=== PATIENT | female | born 1965 | race Caucasian/White ===

== ENCOUNTER → 2016-07-07 | Outpatient (CLI) | payer OTHER ==
[2016-07-07 13:01] LABS: ABSOLUTE EOSINOPHILS # (AUTO) 0.2 10^3/uL (0.0-0.6); ABSOLUTE LYMPHOCYTES (AUTO) 1.7 10^3/uL (0.5-4.7); ABSOLUTE MONOCYTES (AUTO) 0.5 10^3/uL (0.1-1.4); ABSOLUTE NEUT (AUTO) 4.8 10^3/uL (1.7-8.2); BASOPHILS % (AUTO) 0.4 % (0-2); EOSINOPHILS % (AUTO) 2.5 % (0-6); HEMATOCRIT 35.3 % (36.0-47.0); HEMOGLOBIN 11.6 g/dL (12.0-15.5); HGB HCT DIFFERENCE -0.5; LYMPHOCYTES % (AUTO) 23.2 % (13-45); MEAN CORPUSCULAR HEMOGLOBIN 24.4 pg (27.0-33.4); MEAN CORPUSCULAR HGB CONC 32.9 g/dL (32.0-36.0); MEAN CORPUSCULAR VOLUME 74 fl (80-97); MONOCYTES % (AUTO) 6.7 % (3-13); RED BLOOD COUNT 4.76 10^6/uL (3.72-5.28); RED CELL DISTRIBUTION WIDTH 16.8 % (11.5-14.0); SEGMENTED NEUTROPHILS % (AUTO) 67.2 % (42-78); WHITE BLOOD COUNT 7.2 10^3/uL (4.0-10.5)
[2016-07-07 13:21] LABS: CHOLESTEROL 131.84 mg/dL (0-200); Direct HDL 39 mg/dL (>40); TRIGLYCERIDES 189 mg/dL (<150)
[2016-07-07 13:31] LABS: DIRECT LDL 57 mg/dL (<100)
[2016-07-07 13:38] LABS: VLDL CHOLESTEROL 37.8 mg/dL (10-31)
== END ==
LOC: CCC 12:04
DX: E11.8 Type 2 diabetes mellitus with unspecified complications (principal)
CPT/HCPCS: 36415; 80061; 83036; 84443; 85025

== ENCOUNTER → 2016-10-20 | Outpatient (CLI) | payer OTHER ==
--- NOTE | 2016-10-20 13:26 | EKG REPORT ---
SEVERITY:- NORMAL ECG - SINUS RHYTHM : Confirmed by: Clau Deleon MD 20-Oct-2016 13:25:35
[2016-10-20 13:52] LABS: FERRITIN 4.94 ng/mL (11.1-264.0)
== END ==
LOC: CCC 11:39
DX: E78.4 Other hyperlipidemia (principal); E11.8 Type 2 diabetes mellitus with unspecified complications; D50.9 Iron deficiency anemia, unspecified; Z79.899 Other long term (current) drug therapy
CPT/HCPCS: 36415; 82728; 83540; 83550; 93005; 93010

== ENCOUNTER → 2017-06-04 | Outpatient (CLI) | payer OTHER | LOC: WI 13:41 | PROVIDERS: ATTEND Physician Assistant | DX: Z12.31 Encounter for screening mammogram for malignant neoplasm of breast (principal) | CPT/HCPCS: 77067; G0202 ==

== ENCOUNTER 2017-06-25 09:31 | Outpatient (CLI) | payer OTHER ==
[~2017-06-25 09:31] MED LIST: ACETAMINOPHEN 325 MG TABLET PO PRN; DIPHENHYDRAMINE HCL 25 MG CAPSULE PO PRN; IRON DEXTRAN COMPLEX 25 MG in SYRINGE, DISPOSABLE, 1 EACH IV PRN; IRON DEXTRAN COMPLEX 975 MG in NORMAL SALINE 1000 ML 1,000 ML IV PRN; NORMAL SALINE 250 ML IV PRN
[2017-06-25 10:06] VITALS: BP 126/62
== END 2017-06-25 12:41 | disposition home or self-care (01) ==
LOC: II 09:31 → 5TH 09:31 → II 12:41
PROVIDERS: ATTEND Internal Medicine Hematology & Oncology
PROC: 3E033GC Introduction of Other Therapeutic Substance into Peripheral Vein, Percutaneous Approach (ICD-10-PCS; principal; 2017-06-25)
DX: D50.0 Iron deficiency anemia secondary to blood loss (chronic) (principal)
CPT/HCPCS: 96365; 96366; 96375; J1750; J7030; J3490; 96367

== ENCOUNTER → 2017-08-11 | Outpatient (CLI) | payer OTHER ==
--- NOTE | 2017-08-11 17:00 | WOMENS IMAGING REPORT ---
EXAM DESCRIPTION: BILAT DIAGNOSTIC MAMMO W/CAD; U/S BREAST UNILATERAL, COMPL COMPLETED DATE/TIME: 08/11/2017 10:43 am; 08/11/2017 1:32 pm REASON FOR STUDY: NODULAR DENSITY; BILATERAL BREAST NODULES N63.21 N63.21 UNSPECIFIED LUMP IN THE L EFT BREAST, UPPER OUTER QUAD N63.11 UNSPECIFIED LUMP IN THE RIGHT BREAST, UPPER OUTER [place] COMPARISON: BILATERAL SCREENING MAMMOGRAM 06/04/2017 TECHNIQUE: Cone compression craniocaudal and mediolateral oblique views of each breast recorded usin g digital acquisition. Bilateral 90 mediolateral views were also obtained. Bilateral breast ultrasound was performed. LIMITATIONS: None. FINDINGS: RIGHT BREAST MASSES: No suspicious masses. CALCIFICATIONS: No new or suspicious calcifications. ARCHITECTURAL DISTORTION: None. DEVELOPING DENSITY: None. ASYMMETRY: None noted. OTHER: No other significant findings. LEFT BREAST MASSES: No suspicious masses. CALCIFICATIONS: No new or suspicious calcifications. ARCHITECTURAL DISTORTION: None. DEVELOPING DENSITY: None. ASYMMETRY: None noted. OTHER: No other significant finding. Read with the assistance of CAD: .[facility] - R2 Cenova Version 1.3 .[facility] - R2 Cenova Version 1.3 .[facility] - R2 Cenova Version 2.4 .[facility] [place] R2 Cenova Version 2.4 .[facility] - R2 Music Education Adjunct Professor Version 9.2 Bilateral breast ultrasound: On the right side, whole breast ultrasound was performed. At the 6 o'clock position, 6 mm cyst is pr esent. At the 9 o'clock periareolar region, a 7 mm cyst is present. At the 10 to 11 o'clock positio n, a 7 mm cyst is present. At the 10 o'clock retroareolar region, a small 8 mm fibroadenoma is prese nt. On the left side, whole breast ultrasound was performed. At the 12 o'clock position, a 9 mm cyst is present. At the 3 o'clock position, a 2.8 x 2.3 cm fibroadenoma is present. At the 9 o'clock positi on, an 11 mm septated cyst is present. IMPRESSION: No mammographic or sonographic evidence for malignancy bilaterally. BREAST DENSITY: c. The breasts are heterogeneously dense, which may obscure small masses. BIRAD: 2 Benign findings. RECOMMENDATION: RECOMMENDED FOLLOW UP: Please continue yearly bilateral screening mammography/tomosy nthesis in June 2018. SPECIFIC INTERVENTION/IMAGING/CONSULTATION RECOMMENDED:No additional intervention/ imaging/consultati on needed at this time. COMMUNICATION:Patient notified by letter COMMENT: The patient has been notified of the results by letter per SA requirements. Additional no tification policies are in place for contacting patient with suspicious or incomplete findings. Quality ID #[id number]: The [employer] recommends an annual screening mammogram for women aged 40 years or over. This facility utilizes a reminder system to ensure that all patients receive reminder letters, and/or direct phone calls for appointments. This includes reminders for routine scr eening mammograms, diagnostic mammograms, or other Breast Imaging Interventions when appropriate. Th is patient will be placed in the appropriate reminder system. The [employer] (ACR) has developed recommendations for screening MRI of the breast s in certain patient populations, to be used in conjunction with mammography. Breast MRI surveillanc e may be appropriate for women with more than 20% lifetime risk of developing breast cancer as deter mined by genetic testing, significant family history of the disease, or history of mantle radiation f or Hodgkins Disease. ACR Practice Guidelines 2008. TECHNICAL DOCUMENTATION: FINDING NUMBER: (1) ASSESSMENT: (1) JOB ID: [id number] [employer]- All Rights Reserved
--- NOTE | 2017-08-11 17:00 | WOMENS IMAGING REPORT ---
EXAM DESCRIPTION: BILAT DIAGNOSTIC MAMMO W/CAD; U/S BREAST UNILATERAL, COMPL COMPLETED DATE/TIME: 08/11/2017 10:43 am; 08/11/2017 1:32 pm REASON FOR STUDY: NODULAR DENSITY; BILATERAL BREAST NODULES N63.21 N63.21 UNSPECIFIED LUMP IN THE L EFT BREAST, UPPER OUTER QUAD N63.11 UNSPECIFIED LUMP IN THE RIGHT BREAST, UPPER OUTER [place] COMPARISON: BILATERAL SCREENING MAMMOGRAM 06/04/2017 TECHNIQUE: Cone compression craniocaudal and mediolateral oblique views of each breast recorded usin g digital acquisition. Bilateral 90 mediolateral views were also obtained. Bilateral breast ultrasound was performed. LIMITATIONS: None. FINDINGS: RIGHT BREAST MASSES: No suspicious masses. CALCIFICATIONS: No new or suspicious calcifications. ARCHITECTURAL DISTORTION: None. DEVELOPING DENSITY: None. ASYMMETRY: None noted. OTHER: No other significant findings. LEFT BREAST MASSES: No suspicious masses. CALCIFICATIONS: No new or suspicious calcifications. ARCHITECTURAL DISTORTION: None. DEVELOPING DENSITY: None. ASYMMETRY: None noted. OTHER: No other significant finding. Read with the assistance of CAD: .[facility] - R2 Cenova Version 1.3 .[facility] - R2 Cenova Version 1.3 .[facility] - R2 Cenova Version 2.4 .[facility] [place] - R2 Cenova Version 2.4 .[facility] - R2 Manager Front Version 9.2 Bilateral breast ultrasound: On the right side, whole breast ultrasound was performed. At the 6 o'clock position, 6 mm cyst is pr esent. At the 9 o'clock periareolar region, a 7 mm cyst is present. At the 10 to 11 o'clock positio n, a 7 mm cyst is present. At the 10 o'clock retroareolar region, a small 8 mm fibroadenoma is prese nt. On the left side, whole breast ultrasound was performed. At the 12 o'clock position, a 9 mm cyst is present. At the 3 o'clock position, a 2.8 x 2.3 cm fibroadenoma is present. At the 9 o'clock positi on, an 11 mm septated cyst is present. IMPRESSION: No mammographic or sonographic evidence for malignancy bilaterally. BREAST DENSITY: c. The breasts are heterogeneously dense, which may obscure small masses. BIRAD: 2 Benign findings. RECOMMENDATION: RECOMMENDED FOLLOW UP: Please continue yearly bilateral screening mammography/tomosy nthesis in June 2018. SPECIFIC INTERVENTION/IMAGING/CONSULTATION RECOMMENDED:No additional intervention/ imaging/consultati on needed at this time. COMMUNICATION:Patient notified by letter COMMENT: The patient has been notified of the results by letter per SA requirements. Additional no tification policies are in place for contacting patient with suspicious or incomplete findings. Quality ID #225: The [employer] recommends an annual screening mammogram for women aged 40 years or over. This facility utilizes a reminder system to ensure that all patients receive reminder letters, and/or direct phone calls for appointments. This includes reminders for routine scr eening mammograms, diagnostic mammograms, or other Breast Imaging Interventions when appropriate. Th is patient will be placed in the appropriate reminder system. The [employer] (ACR) has developed recommendations for screening MRI of the breast s in certain patient populations, to be used in conjunction with mammography. Breast MRI surveillanc e may be appropriate for women with more than 20% lifetime risk of developing breast cancer as deter mined by genetic testing, significant family history of the disease, or history of mantle radiation f or Hodgkins Disease. ACR Practice Guidelines 2008. TECHNICAL DOCUMENTATION: FINDING NUMBER: (1) ASSESSMENT: (1) JOB ID: [id number] [employer]- All Rights Reserved
--- NOTE | 2017-08-11 17:01 | WOMENS IMAGING REPORT ---
EXAM DESCRIPTION: BILAT DIAGNOSTIC MAMMO W/CAD; U/S BREAST UNILATERAL, COMPL COMPLETED DATE/TIME: 08/11/2017 10:43 am; 08/11/2017 1:32 pm REASON FOR STUDY: NODULAR DENSITY; BILATERAL BREAST NODULES N63.21 N63.21 UNSPECIFIED LUMP IN THE L EFT BREAST, UPPER OUTER QUAD N63.11 UNSPECIFIED LUMP IN THE RIGHT BREAST, UPPER OUTER [place] COMPARISON: BILATERAL SCREENING MAMMOGRAM 06/04/2017 TECHNIQUE: Cone compression craniocaudal and mediolateral oblique views of each breast recorded usin g digital acquisition. Bilateral 90 mediolateral views were also obtained. Bilateral breast ultrasound was performed. LIMITATIONS: None. FINDINGS: RIGHT BREAST MASSES: No suspicious masses. CALCIFICATIONS: No new or suspicious calcifications. ARCHITECTURAL DISTORTION: None. DEVELOPING DENSITY: None. ASYMMETRY: None noted. OTHER: No other significant findings. LEFT BREAST MASSES: No suspicious masses. CALCIFICATIONS: No new or suspicious calcifications. ARCHITECTURAL DISTORTION: None. DEVELOPING DENSITY: None. ASYMMETRY: None noted. OTHER: No other significant finding. Read with the assistance of CAD: .[facility] - R2 Cenova Version 1.3 .[facility] - R2 Cenova Version 1.3 .[facility] - R2 Cenova Version 2.4 .[facility] [place] - R2 Cenova Version 2.4 .[facility] - R2 Substance Abuse Clinician Version 9.2 Bilateral breast ultrasound: On the right side, whole breast ultrasound was performed. At the 6 o'clock position, 6 mm cyst is pr esent. At the 9 o'clock periareolar region, a 7 mm cyst is present. At the 10 to 11 o'clock positio n, a 7 mm cyst is present. At the 10 o'clock retroareolar region, a small 8 mm fibroadenoma is prese nt. On the left side, whole breast ultrasound was performed. At the 12 o'clock position, a 9 mm cyst is present. At the 3 o'clock position, a 2.8 x 2.3 cm fibroadenoma is present. At the 9 o'clock positi on, an 11 mm septated cyst is present. IMPRESSION: No mammographic or sonographic evidence for malignancy bilaterally. BREAST DENSITY: c. The breasts are heterogeneously dense, which may obscure small masses. BIRAD: 2 Benign findings. RECOMMENDATION: RECOMMENDED FOLLOW UP: Please continue yearly bilateral screening mammography/tomosy nthesis in June 2018. SPECIFIC INTERVENTION/IMAGING/CONSULTATION RECOMMENDED:No additional intervention/ imaging/consultati on needed at this time. COMMUNICATION:Patient notified by letter COMMENT: The patient has been notified of the results by letter per SA requirements. Additional no tification policies are in place for contacting patient with suspicious or incomplete findings. Quality ID #225: The [employer] recommends an annual screening mammogram for women aged 40 years or over. This facility utilizes a reminder system to ensure that all patients receive reminder letters, and/or direct phone calls for appointments. This includes reminders for routine scr eening mammograms, diagnostic mammograms, or other Breast Imaging Interventions when appropriate. Th is patient will be placed in the appropriate reminder system. The [employer] (ACR) has developed recommendations for screening MRI of the breast s in certain patient populations, to be used in conjunction with mammography. Breast MRI surveillanc e may be appropriate for women with more than 20% lifetime risk of developing breast cancer as deter mined by genetic testing, significant family history of the disease, or history of mantle radiation f or Hodgkins Disease. ACR Practice Guidelines 2008. TECHNICAL DOCUMENTATION: FINDING NUMBER: (1) ASSESSMENT: (1) JOB ID: [id number] [employer]- All Rights Reserved
== END ==
LOC: WI 10:13
PROVIDERS: ATTEND Physician Assistant
DX: N63.21 Unspecified lump in the left breast, upper outer quadrant (principal); N60.01 Solitary cyst of right breast; D24.1 Benign neoplasm of right breast
CPT/HCPCS: 76641; 77066

== ENCOUNTER 2019-07-31 16:01 | Emergency (ER) | payer SELFPAY ==
[2019-07-31 16:31] VITALS: BP 125/62
--- NOTE | 2019-07-31 17:28 | ER Document Report ---
HPI - HPI Time Seen by Provider: 07/31/19 17:13 Pain Level: Denies Notes: 53-year-old female patient presenting to the emergency department with request for medication refill. Patient reports she is in the process of establishing care with the [facility] however it is a lengthy process. Patient denies any acute complaints today. Past Medical History - General Information source: Patient - Social History Smoking Status: Never Smoker Family History: Reviewed & Not Pertinent Patient has suicidal ideation: No Patient has homicidal ideation: No - Past Medical History Cardiac Medical History: Reports: Hx Hypertension Vertical Provider Document - CONSTITUTIONAL Notes: PHYSICAL EXAMINATION: GENERAL: Well-appearing, well-nourished and in no acute distress. HEAD: Atraumatic, normocephalic. EYES: Pupils equal round extraocular movements intact, conjunctiva are normal. ENT: Nares patent NECK: Normal range of motion LUNGS: No respiratory distress Musculoskeletal: Normal range of motion NEUROLOGICAL: Normal speech, normal gait. PSYCH: Normal mood, normal affect. SKIN: Warm, Dry, normal turgor, no rashes or lesions noted. - INFECTION CONTROL TRAVEL OUTSIDE OF THE [place] IN LAST 30 DAYS: No Course - Re-evaluation Re-evalutation: Medications refilled per request. - Vital Signs Vital signs: Temp Pulse Resp BP Pulse Ox 98.0 F 86 16 125/62 97 07/31/19 16:29 07/31/19 16:29 07/31/19 16:29 07/31/19 16:29 07/31/19 16:29 Discharge - Discharge Clinical Impression: Encounter for medication refill Condition: Stable Disposition: HOME, SELF-CARE Additional Instructions: Your medications were refilled. Please continue to establish care with the primary care clinic at [facility]. Prescriptions: Pioglitazone HCl [Actos 30 mg Tablet] 30 mg PO DAILY #30 tablet Citalopram Hydrobromide [Citalopram HBr] 10 mg PO DAILY #30 tablet Glyburide/Metformin HCl [Glyburide-Metformin 5-500 mg] 2 each PO BID #120 tablet Referrals: HENRY EGAN PA-C [NO LOCAL MD] - Follow up as needed
== END 2019-07-31 18:12 | disposition home or self-care (01) ==
LOC: ER 16:01
DX: Z76.0 Encounter for issue of repeat prescription (principal)
CPT/HCPCS: 99281

== ENCOUNTER → 2019-09-04 | Outpatient (CLI) | payer OTHER ==
[2019-09-04 12:34] LABS: ALKALINE PHOSPHATASE 165 U/L (38-126); ANION GAP 13 (5-19); ASPARTATE AMINO TRANSFERASE 21 U/L (14-36); BILIRUBIN,DIRECT 0.4 mg/dL (0.0-0.4); BILIRUBIN,TOTAL 0.5 mg/dL (0.2-1.3); BLOOD UREA NITROGEN 14 mg/dL (7-20); CARBON DIOXIDE 28 mmol/L (22-30); CHLORIDE 99 mmol/L (98-107); CHOLESTEROL 223.12 mg/dL (0-200); GLUCOSE 287 mg/dL (75-110); TOTAL PROTEIN 8.7 g/dL (6.3-8.2); TRIGLYCERIDES 333 mg/dL (<150)
[2019-09-04 12:45] LABS: DIRECT LDL 108 mg/dL (<100)
[2019-09-04 12:49] LABS: VLDL CHOLESTEROL 66.6 mg/dL (10-31)
== END ==
LOC: CCC 11:01
DX: E11.8 Type 2 diabetes mellitus with unspecified complications (principal)
CPT/HCPCS: 36415; 80053; 80061; 83036; 84443

== ENCOUNTER 2020-05-01 02:09 | Emergency (ER) | payer SELFPAY ==
[2020-05-01] MEDS ORDERED: DIAZEPAM 5 MG TABLET PO ONE (05:34)
--- NOTE | 2020-05-01 05:35 | ER Document Report ---
HPI - HPI Time Seen by Provider: 05/01/20 05:23 Pain Level: 4 Context: Patient is a 54-year-old female who comes emergency department for chief complaint of right shoulder pain. She states that she woke up stiff about 4 days ago, she has had worsening tightness and stiffness, she states she is starting to have shooting pains that go from her neck into her shoulder and occasionally down her arm on the right side. She states she has difficulty turning her head to the left without sharp pain. She denies injury, she denies back surgery, she states that she went to a chiropractor but this seems to have made it worse. She denies incontinence, focal numbness or weakness, fever, history of IV drug abuse. She denies headache or chest pain. She has a history of type 2 diabetes. She states that when she takes ibuprofen and rests it does help but her symptoms are still getting a lot worse. Past Medical History - Social History Smoking Status: Never Smoker Frequency of alcohol use: None Drug Abuse: None Lives with: Family Family History: Reviewed & Not Pertinent - Past Medical History Cardiac Medical History: Reports: Hx Hypertension Endocrine Medical History: Reports: Hx Diabetes Mellitus Type 2 - Immunizations Immunizations up to date: Yes Hx Diphtheria, Pertussis, Tetanus Vaccination: Yes Vertical Provider Document - CONSTITUTIONAL General Appearance: WD/WN. negative: No Apparent Distress - Patient appears uncomfortable and has difficulty getting comfortable, she also moves and turns with obvious discomfort - INFECTION CONTROL TRAVEL OUTSIDE OF THE [place] IN LAST 30 DAYS: No - HEENT HEENT: Atraumatic, Normocephalic - NECK Neck: Normal Inspection - RESPIRATORY Respiratory: Breath Sounds Normal, No Respiratory Distress - GI/ABDOMEN Gastrointestinal: Abdomen Soft, Abdomen Non-Tender - BACK Back: negative: Normal Inspection - Tenderness noted in the right paracervical and right trapezius muscles with cords of muscle spasms noted. Patient can still lift the right arm but she has difficulty turning the head at all to the left and is starting to tilt her head slightly to the right at rest. No midline tenderness of the cervical, thoracic, or lumbar region. No signs of trauma. No saddle anesthesia. Normal distal neurovascular exam of all extremities. Normal strength in all extremities. - MUSCULOSKELETAL/EXTREMETIES Musculoskeletal/Extremeties: MAEW, FROM, Non-Tender - NEURO Level of Consciousness: Awake, Alert, Appropriate Motor/Sensory: No Motor Deficit, No Sensory Deficit - DERM Integumentary: Warm, Dry, No Rash Course - Re-evaluation Re-evalutation: Patient is notably symptomatic, pivoting instead of turning her head, has o bvious tight muscle spasms in the right paracervical and trapezius muscles. She has obvious difficulty relaxing because of this. She has not had any trauma, no concerning symptoms reported, no neurological deficit, and very reproducible symptoms on movement and palpation. Because of she also started to tilt her head slightly to the right, we will treat her to try to avoid developing torticollis. Discussed treatment, precautions, follow-up, and return details at length. Patient states understanding and agreement. - Vital Signs Vital signs: Temp Pulse Resp BP Pulse Ox 98 F 72 18 159/71 H 98 05/01/20 02:17 05/01/20 02:17 05/01/20 02:17 05/01/20 02:17 05/01/20 02:17 Discharge - Discharge Clinical Impression: Right shoulder pain Qualifiers: Chronicity: acute Qualified Code(s): M25.511 - Pain in right shoulder Condition: Stable Disposition: HOME, SELF-CARE Additional Instructions: Your evaluation is consistent with a muscle spasm in your right paracervical and right trapezius muscles as we discussed. I recommend heat to the area, gentle stretches and massage, the anti-inflammatory and muscle x-rays prescribed using the precautions. This should gradually improve and then resolved. Follow-up with primary care for additional management. Come back if you worsen including severe worsening pain, developing numbness, chest pain, fever, or any other concerning or worsening symptoms. Prescriptions: Naproxen 500 mg PO BID PRN 7 Days #14 tablet PRN Reason: Diazepam [Valium 5 mg Tablet] 1 - 2 tab PO TID PRN #12 tablet PRN Reason: Referrals: [facility] [Primary Care Provider] - Follow up in 1 week
[2020-05-01 05:37] VITALS: BP 137/77
== END 2020-05-01 05:44 | disposition home or self-care (01) ==
LOC: ER 02:09
DX: M25.511 Pain in right shoulder (principal); M54.2 Cervicalgia; M79.601 Pain in right arm
CPT/HCPCS: 99283